=== PATIENT | male | born 1950 | race Caucasian/White ===

== ENCOUNTER 2017-10-14 06:08 | Emergency (ER) | payer OTHER ==
[~2017-10-14] VITALS: Ht 177.8 cm; Wt 83.9 kg
[2017-10-14] MEDS ORDERED: LISI20 PO (06:23)
[2017-10-14 06:59] LABS: BASOPHILS ABSOLUTE AUTO 0.03 K/mm3 (0.00-0.23); BASOPHILS PERCENT AUTO 0 % (0-2); EOSINOPHILS ABSOLUTE AUTO 0.09 K/mm3 (0.00-0.68); EOSINOPHILS PERCENT AUTO 1 % (0-6); Hemoglobin 13.8 g/dL (13.5-17.5); IMMATURE GRAN ABSOLUTE AUTO 0.04 K/mm3 (0.00-0.10); IMMATURE GRAN PERCENT AUTO 0 % (0-1); LYMPHOCYTES ABSOLUTE AUTO 1.36 K/mm3 (0.84-5.20); LYMPHOCYTES PERCENT AUTO 12 % (21-46); MONOCYTES ABSOLUTE AUTO 1.16 K/mm3 (0.16-1.47); MONOCYTES PERCENT AUTO 11 % (4-13); Mean Corpuscular HGB 29.3 pg (26.0-34.0); Mean Corpuscular HGB Conc 32.9 g/dL (31.5-36.5); Mean Corpuscular Volume 89 fL (80-100); Mean Platelet Volume 8.6 fL (9.1-12.4); NEUTROPHILS ABSOLUTE AUTO 8.28 K/mm3 (1.96-9.15); NEUTROPHILS PERCENT AUTO 76 % (41-73); Platelet Count 241 K/mm3 (150-400); RDW Coefficient Variation 13.1 % (11.7-14.2); RDW Standard Deviation 42.6 fL (35.1-46.3); Red Blood Cell Count 4.71 M/mm3 (4.30-5.90); White Blood Cell Count 10.96 K/mm3 (4.00-11.30)
[2017-10-14 07:14] LABS: Bun/Creatinine Ratio 20.3 (12.0-20.0); Calcium, Blood 9.5 mg/dL (8.5-10.1); Creatinine, Blood 1.82 mg/dL (0.60-1.20)
[2017-10-14] MEDS ORDERED: Bactrim 400-801 EACH PO (08:13)
[2017-10-14] MEDS ORDERED: Percocet 5-3251 EACH PO (08:13)
[2017-10-14] MEDS ORDERED: Cleocin HCl300 MG PO (08:13)
== END 2017-10-14 08:30 | disposition home or self-care (01) ==
LOC: ER 06:08
PROVIDERS: Emergency Medicine
DX: S62.521A Displaced fracture of distal phalanx of right thumb, initial encounter for closed fracture (principal); L08.9 Local infection of the skin and subcutaneous tissue, unspecified; W11.XXXA Fall on and from ladder, initial encounter; Z79.899 Other long term (current) drug therapy
CPT/HCPCS: 29125; 36415; 73140; 80048; 85025; 85651; 99283

== ENCOUNTER 2017-10-17 21:19 | Inpatient (IN) | payer OTHER ==
[~2017-10-17] VITALS: Ht 177.8 cm; Wt 83.4 kg
[~2017-10-17 21:19] MED LIST: Bactrim 400-801 EACH PO; Cleocin HCl300 MG PO; LISI20 PO; Percocet 5-3251 EACH PO
[2017-10-18 00:27] LABS: BASOPHILS ABSOLUTE AUTO 0.04 K/mm3 (0.00-0.23); BASOPHILS PERCENT AUTO 1 % (0-2); EOSINOPHILS ABSOLUTE AUTO 0.15 K/mm3 (0.00-0.68); EOSINOPHILS PERCENT AUTO 2 % (0-6); Hematocrit 43.9 % (37.0-53.0); Hemoglobin 14.3 g/dL (13.5-17.5); IMMATURE GRAN ABSOLUTE AUTO 0.02 K/mm3 (0.00-0.10); IMMATURE GRAN PERCENT AUTO 0 % (0-1); LYMPHOCYTES PERCENT AUTO 23 % (21-46); MONOCYTES ABSOLUTE AUTO 0.67 K/mm3 (0.16-1.47); MONOCYTES PERCENT AUTO 9 % (4-13); Mean Corpuscular HGB 29.1 pg (26.0-34.0); Mean Corpuscular HGB Conc 32.6 g/dL (31.5-36.5); Mean Corpuscular Volume 89 fL (80-100); Mean Platelet Volume 8.5 fL (9.1-12.4); NEUTROPHILS ABSOLUTE AUTO 4.96 K/mm3 (1.96-9.15); NEUTROPHILS PERCENT AUTO 66 % (41-73); Platelet Count 283 K/mm3 (150-400); RDW Coefficient Variation 12.7 % (11.7-14.2); RDW Standard Deviation 41.4 fL (35.1-46.3); Red Blood Cell Count 4.91 M/mm3 (4.30-5.90); White Blood Cell Count 7.54 K/mm3 (4.00-11.30)
[2017-10-18 00:43] LABS: Bun/Creatinine Ratio 17.1 (12.0-20.0); Creatinine, Blood 1.7 mg/dL (0.60-1.20); Potassium, Blood 4.6 mmol/L (3.5-5.5)
[2017-10-18 00:44] LABS: C-Reactive Protein, High Sens. 33.3 mg/L (0.000-3.000)
[2017-10-19 01:51] LABS: Hematocrit 39.3 % (37.0-53.0); Mean Corpuscular HGB 29.3 pg (26.0-34.0); Mean Corpuscular HGB Conc 33.1 g/dL (31.5-36.5); Mean Corpuscular Volume 89 fL (80-100); Mean Platelet Volume 8.5 fL (9.1-12.4); Platelet Count 232 K/mm3 (150-400); RDW Coefficient Variation 12.6 % (11.7-14.2); RDW Standard Deviation 40.7 fL (35.1-46.3); Red Blood Cell Count 4.44 M/mm3 (4.30-5.90); White Blood Cell Count 5.25 K/mm3 (4.00-11.30)
[2017-10-19 02:07] LABS: Alanine Aminotransfer (ALT/SGP 21 U/L (12-78); Albumin, Blood 2.9 g/dL (3.4-5.0); Albumin/Globulin Ratio 0.8 (0.8-1.8); Alk Phos 69 U/L (50-136); Anion Gap 7 mmol/L (6-16); Aspartate Aminotrans (AST/SGOT 17 U/L (12-37); Bilirubin, Total 0.7 mg/dL (0.1-1.0); Blood Urea Nitrogen 29 mg/dL (8-24); CO2, Blood 28 mmol/L (21-32); Chloride, Blood 105 mmol/L (98-108); Creatinine, Blood 1.53 mg/dL (0.60-1.20); Globulin, Blood 3.5 g/dL (2.2-4.0); Glomerular Filtration Rate 49 (60-); Glucose, Blood 98 mg/dL (70-99); Potassium, Blood 4.8 mmol/L (3.5-5.5); Sodium, Blood 140 mmol/L (136-145); Total Protein, Blood 6.4 g/dL (6.4-8.2)
[2017-10-20] MEDS ORDERED: Gas Relief 8080 MG PO (11:45)
[2017-10-20] MEDS ORDERED: AMOX875 PO (11:46)
[2017-10-20] MEDS ORDERED: CEPH500 PO (11:48)
[2017-10-20] MEDS ORDERED: Percocet 5-3251 EACH PO (11:51)
== END 2017-10-20 18:13 | disposition home or self-care (01) | DRG 603 ==
LOC: ER 21:19 → MEDS 10-18 03:30 → SURS 10-18 03:30 → PCU 10-18 03:35 → SURS 10-19 16:48
PROVIDERS: Emergency Medicine; Internal Medicine
PROC: 0H9FXZZ Drainage of Right Hand Skin, External Approach (ICD-10-PCS; principal; 2017-10-18)
DX: L02.511 Cutaneous abscess of right hand (principal); L03.011 Cellulitis of right finger; I12.9 Hypertensive chronic kidney disease with stage 1 through stage 4 chronic kidney disease, or unspecified chronic kidney disease; N18.2 Chronic kidney disease, stage 2 (mild); T40.4X5A Adverse effect of other synthetic narcotics, initial encounter; Y92.230 Patient room in hospital as the place of occurrence of the external cause; T40.2X5A Adverse effect of other opioids, initial encounter; S62.521A Displaced fracture of distal phalanx of right thumb, initial encounter for closed fracture; W11.XXXA Fall on and from ladder, initial encounter; R00.1 Bradycardia, unspecified; K21.9 Gastro-esophageal reflux disease without esophagitis; B95.4 Other streptococcus as the cause of diseases classified elsewhere; B96.3 Hemophilus influenzae [H. influenzae] as the cause of diseases classified elsewhere; Z79.899 Other long term (current) drug therapy
CPT/HCPCS: 10160; 36415; 73140; 80048; 80053; 80202; 83605; 84484; 85025; 85027; 85651; 86141; 87070; 87077; 87205; 93005; 93010; 93306; 96365; 99285; C9113; J1650; J2310; J2405; J2543; J3010; J3370; J7030; J7050

== ENCOUNTER 2019-02-02 10:23 | Emergency (ER) | payer OTHER ==
[~2019-02-02] VITALS: Ht 177.8 cm; Wt 83.9 kg
[~2019-02-02 10:23] MED LIST changes: +AMOX875 PO; +CEPH500 PO; +Gas Relief 8080 MG PO
[2019-02-02] MEDS ORDERED: METOPROLOL SUCC25 MG PO (13:05)
[2019-02-02] MEDS ORDERED: Tizanidine HCl2 MG (13:05)
[2019-02-02] MEDS ORDERED: METPRE4DP PO (13:05)
[2019-02-02] MEDS ORDERED: LOSARTAN POTAS100 MG PO (13:06)
== END 2019-02-02 14:52 | disposition home or self-care (01) ==
LOC: ER 10:23
DX: M54.5 Low back pain (principal); Z79.899 Other long term (current) drug therapy; Z79.52 Long term (current) use of systemic steroids; I10 Essential (primary) hypertension
CPT/HCPCS: 72131; 99283-25

== ENCOUNTER 2019-03-03 13:29 | Day surgery (SDC) | payer OTHER ==
[~2019-03-03] VITALS: Ht 177.8 cm; Wt 80.7 kg
[~2019-03-03 13:29] MED LIST changes: +LOSARTAN POTAS100 MG PO; +METOPROLOL SUCC25 MG PO; +METPRE4DP PO; +Tizanidine HCl2 MG
== END 2019-03-03 17:00 | disposition home or self-care (01) ==
LOC: ORSCSDS 13:29
PROVIDERS: Orthopaedic Surgery
PROC: 3E0R33Z Introduction of Anti-inflammatory into Spinal Canal, Percutaneous Approach (ICD-10-PCS; principal; 2019-03-03 15:00)
DX: M54.16 Radiculopathy, lumbar region (principal); M48.062 Spinal stenosis, lumbar region with neurogenic claudication; M54.5 Low back pain; I10 Essential (primary) hypertension; E78.5 Hyperlipidemia, unspecified; Z87.891 Personal history of nicotine dependence; Z79.899 Other long term (current) drug therapy
CPT/HCPCS: J1040

== ENCOUNTER 2019-10-12 06:05 | Day surgery (SDC) | payer OTHER ==
[~2019-10-12] VITALS: Ht 177.8 cm; Wt 81.3 kg
[~2019-10-12 06:05] MED LIST changes: +GABA100 PO; +LOSARTAN POTAS100 M1 PO; +METO25ER PO; +Methocarbamol750 MG PO; +NAPR500 PO; +TIZANIDINE HCL2 MG PO; +TRAM50 PO
[2019-10-12] MEDS ORDERED: Norco 5-325 Ta1 EACH (06:46)
[2019-10-12 08:07] LABS: Hematocrit 40.2 % (37.0-53.0); Hemoglobin 12.8 g/dL (13.5-17.5); Mean Corpuscular HGB 28.8 pg (26.0-34.0); Mean Corpuscular HGB Conc 31.8 g/dL (31.5-36.5); Mean Corpuscular Volume 90 fL (80-100); Mean Platelet Volume 8.8 fL (9.1-12.4); Platelet Count 197 K/mm3 (150-400); RDW Coefficient Variation 12.8 % (11.7-14.2); RDW Standard Deviation 42.1 fL (35.1-46.3); Red Blood Cell Count 4.45 M/mm3 (4.30-5.90); White Blood Cell Count 6.03 K/mm3 (4.00-11.30)
--- NOTE | 2019-10-12 08:44 | NUR ---
10/12/19 0844 Debbie Bahena FRAME, GELX2 UNDER KNEES, KNEES FLEXED WITH PILLOWS, EGGCRATE UNDER ARMS, GEL UNDER ANKLES, FOAM LINED PRONE VIEW, ROLLS IN AXILLA. POSITION VERIFIED AND CHECKED BY SURGEON AND ANESTHESIA. PATIENT INTUBATED AND THEN TRANSFERRED TO OR TABLE.
--- NOTE | 2019-10-12 12:46 | NUR ---
10/12/19 1246 Regina Hung PT'S VITAL SIGNS REPORTED TO DR PRADO. NO INTERVENTIONS AT THIS TIME PER DR PRADO. DR STATED THAT HE WOULD COME CHECK ON PATIENT BEFORE DISCHARGE. PT DENIES NAUSEA, DIZZINESS AND PAIN. OK'D PT FOR DISCHARGE ONCE SYSTOLIC BP GREATER THAN 90. CALL LIGHT IN REACH. REPORT GIVEN TO NATALIE ROSARIO.
== END 2019-10-12 13:06 | disposition home or self-care (01) ==
LOC: ORSCSDS 06:05
PROVIDERS: Orthopaedic Surgery; Physician Assistant
PROC: 01NB0ZZ Release Lumbar Nerve, Open Approach (ICD-10-PCS; principal; 2019-10-12 07:30)
DX: M48.062 Spinal stenosis, lumbar region with neurogenic claudication (principal); M47.816 Spondylosis without myelopathy or radiculopathy, lumbar region; I10 Essential (primary) hypertension; Z79.899 Other long term (current) drug therapy; Z87.891 Personal history of nicotine dependence; E78.5 Hyperlipidemia, unspecified; B19.20 Unspecified viral hepatitis C without hepatic coma
CPT/HCPCS: 85027; J0171; J0690; J1100; J2370; J2405; J2704; J3010; J3370; J7120

== ENCOUNTER 2021-03-25 09:57 | Observation (INO) | payer OTHER ==
[~2021-03-25] VITALS: Ht 177.8 cm; Wt 81.9 kg
[~2021-03-25 09:57] MED LIST changes: +Norco 5-325 Ta1 EACH
[2021-03-25 10:25] LABS: BASOPHILS ABSOLUTE AUTO 0.05 K/mm3 (0.00-0.23); BASOPHILS PERCENT AUTO 1 % (0-2); EOSINOPHILS PERCENT AUTO 1 % (0-6); Hematocrit 46.9 % (37.0-53.0); Hemoglobin 15.4 g/dL (13.5-17.5); IMMATURE GRAN ABSOLUTE AUTO 0.04 K/mm3 (0.00-0.10); IMMATURE GRAN PERCENT AUTO 0 % (0-1); LYMPHOCYTES ABSOLUTE AUTO 1.84 K/mm3 (0.84-5.20); LYMPHOCYTES PERCENT AUTO 17 % (21-46); MONOCYTES ABSOLUTE AUTO 1.03 K/mm3 (0.16-1.47); MONOCYTES PERCENT AUTO 9 % (4-13); Mean Corpuscular HGB 29.1 pg (26.0-34.0); Mean Corpuscular HGB Conc 32.8 g/dL (31.5-36.5); Mean Corpuscular Volume 89 fL (80-100); Mean Platelet Volume 8.5 fL (9.1-12.4); NEUTROPHILS ABSOLUTE AUTO 7.95 K/mm3 (1.96-9.15); NEUTROPHILS PERCENT AUTO 72 % (41-73); Platelet Count 229 K/mm3 (150-400); RDW Coefficient Variation 12.5 % (11.7-14.2); RDW Standard Deviation 40.8 fL (35.1-46.3); Red Blood Cell Count 5.29 M/mm3 (4.30-5.90); White Blood Cell Count 11.01 K/mm3 (4.00-11.30)
[2021-03-25 10:45] LABS: Magnesium, Blood 1.6 mg/dL (1.6-2.4); Troponin I <0.015 ng/mL (0.000-0.040)
[2021-03-25 10:46] LABS: Alanine Aminotransfer (ALT/SGP 20 U/L (12-78); Albumin, Blood 3.2 g/dL (3.4-5.0); Albumin/Globulin Ratio 0.9 (0.8-1.8); Alk Phos 94 U/L (50-136); Anion Gap 4 mmol/L (6-16); Aspartate Aminotrans (AST/SGOT 19 U/L (12-37); Bilirubin, Total 0.8 mg/dL (0.1-1.0); Blood Urea Nitrogen 28 mg/dL (8-24); Bun/Creatinine Ratio 21.2 (12.0-20.0); CO2, Blood 27 mmol/L (21-32); Chloride, Blood 106 mmol/L (98-108); Creatinine, Blood 1.32 mg/dL (0.60-1.20); Globulin, Blood 3.6 g/dL (2.2-4.0); Glomerular Filtration Rate 54 (60-); Glucose, Blood 111 mg/dL (70-99); Potassium, Blood 4.6 mmol/L (3.5-5.5); Sodium, Blood 137 mmol/L (136-145); Total Protein, Blood 6.8 g/dL (6.4-8.2)
[2021-03-25] MEDS ORDERED: TAMSULOSIN HCL0.4 M1 PO (11:22)
[2021-03-25] MEDS ORDERED: AMLODIPINE BESY10 MG PO (11:22)
--- NOTE | 2021-03-25 18:24 | NUR ---
SHIFT SUMMARY PATIENT ADMIT FROM ER. PATIENT ORIENTED TO ROOM AND CALL LIGHT. ADMISSION ASSESSMENT COMPLETED. PATIENT COMPLAINS OF 9/10 LEFT ARM, SHOULDER, AND CHEST PAIN. MEDICATED PER JUL. PATIENT ATE DINNER AND IS NOW RESTING IN BED.
--- NOTE | 2021-03-26 05:18 | NUR ---
SHIFT SUMMARY: PT IS ALERT AND ORIENTED. PT IS CALM AND COOPERATIVE WITH CARE. PT CALLS APPROPRIATELY. PT IS INDEPENDENT IN THE ROOM. PT REFUSED EVENING GABAPENTIN. PT DENIES PAIN, NAUSEA, VOMITING AND SOB. PT RUNNING BRADYCARDIC ON TELE IN THE MID TO LOW 40'S, ASYMPTOMATIC. PT SLEPT MOST OF THE NIGHT. STRESS TEST SCHEDULED FOR TODAY, NPO SINCE MIDNIGHT. NO ACUTE CHANGES OR COMPLICATIONS THIS SHIFT. BED IN LOW POSITION, CALL LIGHT WITHIN REACH. WILL CONTINUE TO MONITOR.
--- NOTE | 2021-03-26 17:42 | NUR ---
Alert and oriented x4 , able to make needs known. complained of left chest and back pain 11/10, toradol 15 mg iv was given and it was effective. Had one stress test done today and will be repeated tomorrow. NPO tonight after midnight , hold breakfast and no nitro patch till after the stress test. vital signs are stable. Continue on tele monitor with normal sinus ryhthm in 60s. one person assist with ADLS. Call light within reach and continue to monitor.
[2021-03-27 05:09] LABS: Bun/Creatinine Ratio 27.8 (12.0-20.0); Calcium, Blood 9.5 mg/dL (8.5-10.1); Creatinine, Blood 1.33 mg/dL (0.60-1.20); Potassium, Blood 4.5 mmol/L (3.5-5.5)
--- NOTE | 2021-03-27 05:51 | NUR ---
SHIFT SUMMARY PATIENT ALERT AND ORIENTED. HAD NO COMPLAINTS OF PAIN OR SHORTNESS OF BREATH. NO ACUTE ISSUES NOTED OVERNIGHT. CALL LIGHT WITHIN REACH. REPORT GIVEN TO ONCOMING RN.
[2021-03-27] MEDS ORDERED: ASPI81CH PO (16:45)
[2021-03-27] MEDS ORDERED: ATOR40TA PO (16:45)
--- NOTE | 2021-03-27 19:17 | NUR ---
Alert and oriented x3 , able to makes need known. Denies any shortness of breath , dizziness , headache and fever. c/o chest pain 2/10 but releived with movement. Stress test was done and it was unremarkable. Patient discharged home at in a stable . Vital signs are stable. Discharged instruction was given and acknowledged .
== END 2021-03-27 17:26 | disposition home or self-care (01) ==
LOC: ER 09:57 → ERHOLD 09:58 → MEDS 17:24
PROVIDERS: Student in an Organized Health Care Education/Training Program; ADMIT Hospitalist
DX: R07.9 Chest pain, unspecified (principal); R00.1 Bradycardia, unspecified; I12.9 Hypertensive chronic kidney disease with stage 1 through stage 4 chronic kidney disease, or unspecified chronic kidney disease; N18.30 Chronic kidney disease, stage 3 unspecified; N40.0 Benign prostatic hyperplasia without lower urinary tract symptoms; M54.9 Dorsalgia, unspecified; G89.29 Other chronic pain
CPT/HCPCS: 36415; 71046; 78452; 80048; 80053; 83735; 84484; 85025; 90686; 93005; 93010; 93017; 96365; 96366; 96375; 99285-25; A9270; A9500; J0706; J1650; J1885; J2785; J3475

== ENCOUNTER → 2023-01-29 | Outpatient (CLI) | payer OTHER ==
[~2023-01-29] MED LIST changes: +AMLODIPINE BESY10 MG PO; +ASPI81CH PO; +ATOR40TA PO; +TAMSULOSIN HCL0.4 M1 PO
== END | disposition home or self-care (01) ==
LOC: LAB SHORT 11:54 → LAB 11:54
DX: J18.9 Pneumonia, unspecified organism (principal); J69.0 Pneumonitis due to inhalation of food and vomit; R05.3 Chronic cough
CPT/HCPCS: 87070; 87205

== ENCOUNTER 2023-02-23 11:40 | Day surgery (SDC) | payer OTHER ==
[~2023-02-23] VITALS: Ht 175.3 cm; Wt 92.8 kg
[2023-02-23] MEDS ORDERED: FLUT1DIS5 (12:13)
[2023-02-23] MEDS ORDERED: Ventolin5 MG/1 ML INH (12:13)
[2023-02-23] MEDS ORDERED: PREG100 (12:13)
[2023-02-23] MEDS ORDERED: OMEP20ER (12:13)
[2023-02-23 14:40] VITALS: BP 119/86
== END 2023-02-23 14:33 | disposition home or self-care (01) ==
LOC: ORSCSDS 11:40
PROVIDERS: Internal Medicine Gastroenterology
PROC: 0DB58ZX Excision of Esophagus, Via Natural or Artificial Opening Endoscopic, Diagnostic (ICD-10-PCS; principal; 2023-02-23 13:00)
PROC: 0D758ZZ Dilation of Esophagus, Via Natural or Artificial Opening Endoscopic (ICD-10-PCS; principal; 2023-02-23 13:00)
PROC: 0DBH8ZX Excision of Cecum, Via Natural or Artificial Opening Endoscopic, Diagnostic (ICD-10-PCS; principal; 2023-02-23 13:00)
DX: R13.10 Dysphagia, unspecified (principal); B37.81 Candidal esophagitis; K44.9 Diaphragmatic hernia without obstruction or gangrene; K21.9 Gastro-esophageal reflux disease without esophagitis; R10.84 Generalized abdominal pain; D12.0 Benign neoplasm of cecum; K57.30 Diverticulosis of large intestine without perforation or abscess without bleeding; J45.50 Severe persistent asthma, uncomplicated; J44.9 Chronic obstructive pulmonary disease, unspecified; Z86.19 Personal history of other infectious and parasitic diseases; F15.11 Other stimulant abuse, in remission; Z79.82 Long term (current) use of aspirin; Z79.899 Other long term (current) drug therapy; Z87.891 Personal history of nicotine dependence
CPT/HCPCS: 88305; 88312; J2001; J2704; J7120

== ENCOUNTER → 2023-08-26 | Outpatient (CLI) | payer OTHER ==
[~2023-08-26] MED LIST changes: +FLUT1DIS5; +OMEP20ER; +PREG100; +Ventolin5 MG/1 ML INH
[2023-08-26 14:23] LABS: Anion Gap 9 mmol/L (3-11); Blood Urea Nitrogen 32 mg/dL (8-24); Bun/Creatinine Ratio 22.4 (12.0-20.0); CHOL/HDL RATIO 5.6; CO2, Blood 24 mmol/L (21-32); Calcium, Blood 9.7 mg/dL (8.5-10.1); Chloride, Blood 109 mmol/L (98-108); Cholesterol 197 mg/dL (50-200); Creatinine, Blood 1.43 mg/dL (0.60-1.20); Glomerular Filtration Rate 52 (60-); Glucose, Blood 127 mg/dL (70-99); HDL Cholesterol 35 mg/dL (>39); LDL/HDL RATIO 3.7; Low Density Lipoprotein Chol 130 mg/dL (0-110); Potassium, Blood 4.1 mmol/L (3.5-5.5); Sodium, Blood 138 mmol/L (136-145); Triglycerides 161 mg/dL (30-160); Very Low Density Lipoprot Chol 32 mg/dL (6-32)
== END | disposition home or self-care (01) ==
LOC: LAB SHORT 12:17 → LAB 12:17
PROVIDERS: Physician Assistant
DX: Z51.81 Encounter for therapeutic drug level monitoring (principal); Z79.899 Other long term (current) drug therapy
CPT/HCPCS: 80048; 80061; 82306; 83036; 84443

== ENCOUNTER → 2025-03-15 | Outpatient (CLI) | payer OTHER ==
[2025-03-15 11:51] LABS: BASOPHILS ABSOLUTE AUTO 0.06 K/mm3 (0.00-0.23); BASOPHILS PERCENT AUTO 1 % (0-2); EOSINOPHILS ABSOLUTE AUTO 0.15 K/mm3 (0.00-0.68); EOSINOPHILS PERCENT AUTO 2 % (0-6); Hematocrit 42.5 % (37.0-53.0); Hemoglobin 14.5 g/dL (13.5-17.5); IMMATURE GRAN ABSOLUTE AUTO 0.01 K/mm3 (0.00-0.10); IMMATURE GRAN PERCENT AUTO 0 % (0-1); LYMPHOCYTES ABSOLUTE AUTO 2.07 K/mm3 (0.84-5.20); LYMPHOCYTES PERCENT AUTO 31 % (21-46); MONOCYTES ABSOLUTE AUTO 0.61 K/mm3 (0.16-1.47); MONOCYTES PERCENT AUTO 9 % (4-13); Mean Corpuscular HGB Conc 34.1 g/dL (31.5-36.5); Mean Corpuscular Volume 87 fL (80-100); NEUTROPHILS ABSOLUTE AUTO 3.88 K/mm3 (1.96-9.15); NEUTROPHILS PERCENT AUTO 57 % (41-73); NRBC ABSOLUTE 0.00 K/mm3 (0.00-0.02); NRBC Auto 0.0 /100 WBC (0.0-0.2); Platelet Count 243 K/mm3 (150-400); RDW Coefficient Variation 13.7 % (11.7-14.2); RDW Standard Deviation 42.9 fL (35.1-46.3)
[2025-03-15 12:46] LABS: Alanine Aminotransfer (ALT/SGP 24.0 U/L (12-78); Albumin, Blood 3.5 g/dL (3.4-5.0); Albumin/Globulin Ratio 1.1 (0.8-1.8); Anion Gap 7.0 mmol/L (3-11); Aspartate Aminotrans (AST/SGOT 21.0 U/L (12-37); Bilirubin, Total 1.2 mg/dL (0.1-1.0); Blood Urea Nitrogen 24.0 mg/dL (8-24); CO2, Blood 24.0 mmol/L (21-32); Calcium, Blood 9.3 mg/dL (8.5-10.1); Chloride, Blood 110.0 mmol/L (98-108); Creatinine, Blood 1.4 mg/dL (0.60-1.20); Globulin, Blood 3.1 g/dL (2.2-4.0); Glucose, Blood 102.0 mg/dL (70-99); Potassium, Blood 4.2 mmol/L (3.5-5.5); Sodium, Blood 137.0 mmol/L (136-145); Total Protein, Blood 6.6 g/dL (6.4-8.2)
== END ==
LOC: LAB 08:20 → LAB SHORT 08:20
PROVIDERS: Physician Assistant
DX: I10 Essential (primary) hypertension (principal)
CPT/HCPCS: 80053; 85025